=== PATIENT | male | born 1960 | race Caucasian/White ===

== ENCOUNTER 2023-09-02 14:44 | Emergency (ER) | payer MEDICARE, MEDICAID, SELFPAY ==
[2023-09-02 14:45] VITALS: BP 125/83; PULSE 95; RESP 16; TEMP 36.4; O2SAT 94; BMI 25.4
[2023-09-02 14:47] VITALS: BP 125/83; PULSE 93; RESP 16; TEMP 36.4; O2SAT 94
--- NOTE | 2023-09-02 14:58 | ED.RN ---
LONG TERM STATES PT WANTS TO SEE A NEW UROLOGIST BECAUSE HE HAS HAD SO MANY PROBLEMS WITH HIS SUPRAPUBIC.
--- NOTE | 2023-09-02 15:29 | CT_ITS ---
STUDY: CT ABDOMEN AND PELVIS WITH CONTRAST REASON FOR EXAM: Male, 63 years old. lower abd pain RADIATION DOSAGE (If Supplied By Facility): CTDIvol = ( 17.78 ) mGy, DLP = ( 645.71 ) mGycm TECHNIQUE: Transaxial images were obtained from the dome of the diaphragm to the symphysis pubis without oral contrast. IV 100mL Isovue-370 was administered. Sagittal and coronal images were reconstructed. Individualized dose optimization techniques were used for this CT. COMPARISON: None. FINDINGS: The visualized lung bases are unremarkable. The visualized portions of the heart are within normal limits. Normal liver. There is a solitary gallstone. Normal spleen. Normal pancreas. Normal bilateral adrenal glands. Right kidney is relatively small consistent with moderate chronic atrophy, otherwise negative right kidney. Normal left kidney. Evaluation of the GI tract is limited by absence of oral contrast. Cannot exclude stomach wall thickening. No dilated loops of bowel or evidence for obstruction. Cannot exclude segmental thickening of the odom of the small or large bowel. Cannot exclude enteritis or colitis. Postsurgical changes and bowel anastomosis across the mid transverse colon Marked diffuse fecal retention. Left lower quadrant ostomy, grossly negative. Appendix within normal limits. There is diffuse atherosclerotic calcification of the abdominal aorta, without a demonstrated aneurysm. Normal inferior vena cava. Normal retroperitoneum. Suprapubic catheter appears to be positioned in the far anterior lumen of the bladder. Bladder is nondistended. Several bladder stones are seen along the posterior wall of the bladder. Normal abdominal wall. Normal osseous structures. CT/Abdomen/Pelvis W IV Cont ONLY IMPRESSION: Cholelithiasis. Suprapubic catheter is in grossly satisfactory position within the lumen of the bladder. Bladder stones are seen. Marked diffuse fecal retention. Electronically Signed: David Mendoza MD at 17:14 EST ,
--- NOTE | 2023-09-02 15:30 | EX.ED.DYSGE1 ---
HPI History of Present Illness Chief Complaint: Complaint Detail of Chief Complaint: Concern for UTI Informant: patient Narrative Narrative: Patient presents via EMS from a nursing home secondary to concern for UTI. He has a history of colorectal cancer for which he underwent an ostomy 14 years ago. Patient states that he had a Perez catheter for years and had frequent UTIs. About 6 months ago he had a suprapubic catheter placed by Dr. Quiroga, his urologist in [place]. He states he continues to have frequent infections and is concerned that he has a infection currently. He reports some pain around the suprapubic site. He states he continues to have urine leak around the surgical site as well as from his penis. He denies having fever or chills. [facility] Medical History (Updated 09/02/23 @ 17:[address] Victorina Razo MD) Bipolar disorder Colorectal cancer Colostomy in place Suprapubic catheter Home Medications sulfamethoxazole 800 mg-trimethoprim 160 mg tablet (Bactrim DS) 1 tab PO BID #6 tabs 09/02/23 [Rx Last Taken Unknown] Allergy/AdvReac Type Severity Reaction Status Date / Time No Known Allergies Allergy Verified 09/02/23 14:48 Social History Smoking Status: Former smoker ROS ROS ED Constitutional Constitutional ED: Denies chills or fever(s) ENT ENT ED: Denies rhinorrhea or sore throat Cardiovascular Cardiovascular: Denies chest pain or palpitations Respiratory/Chest Respiratory/Chest: Denies cough or dyspnea Gastrointestinal Gastrointestinal: Reports abdominal pain; Denies diarrhea, nausea or vomiting Musculoskeletal Musculoskeletal: Denies back pain or extremity pain Integumentary Denies Abrasions or rash Neurologic Neurologic: Denies headache(s) or weakness Psychiatric Psychiatric: Denies anxiety or depression Allergic/Immunologic Allergic/Immunologic ED: Denies lip swelling or urticaria EXAM Physical Exam Const Vital Signs: 09/02/23 14:45 09/02/23 14:47 09/02/23 16:36 Temperature 97.5 F L 97.5 F L 97.4 F L Temperature Source Oral Temporal Oral Pulse Rate 95 93 86 Respiratory Rate 16 16 16 Blood Pressure 125/83 H 125/83 H 118/84 H Blood Pressure Mean 97 97 95 Pulse Ox 94 94 94 Oxygen Delivery Method Room Air Room Air Room Air Positive well nourished and well developed General Appearance ED: well developed HEENT Reports moist mucous membranes Eyes EOMs intact bilaterally Chest Wall inspection of chest normal and palpation of chest normal Resp normal respiratory effort and clear to auscultation bilaterally Cardio regular rate and regular rhythm GI GI Narrative: Abdomen soft. Ostomy site clean with no sign of infection. Suprapubic catheter in place with only minimal erythema at the insertion site. Slight tenderness to palpation around the area. Extremity normal to inspection Neuro Neuro Narrative: Patient alert answers questions appropriately. Psych mental status grossly normal MDM MDM MDM Narrative Medical decision making narrative: IV line established. Labwork obtained to evaluate for leukocytosis, anemia, and electrolyte derangement. Urinalysis obtained to evaluate for infection/hematuria. Urine culture sent given patient's history of frequent UTIs. CT scan abdomen pelvis with IV contrast will be obtained to evaluate the suprapubic site and evaluate for any evidence of infection. History & Record Review Discussion w/independent historian: Patient Lab Data Attestation: I reviewed the patient's lab results. Labs: Laboratory Results - last 24 hr 09/02/23 09/02/23 16:10 16:17 WBC 5.9 RBC 4.59 L Hgb 14.1 Hct 42.1 MCV 91.7 MCH 30.7 MCHC 33.5 RDW Std Deviation 42.0 RDW Coeff of [place] 12.7 Plt Count 171 MPV 9.9 Immature Gran % (Auto) 0.200 Neut % (Auto) 67.1 Lymph % (Auto) 23.4 Nolan % (Auto) 7.9 Eos % (Auto) 0.2 Baso % (Auto) 1.2 H Absolute Neuts (auto) 3.9 Absolute Lymphs (auto) 1.37 Nucleated RBC % 0 Sodium 141 Potassium 4.9 Chloride 110 H Carbon Dioxide 28.0 Anion Gap 3 L BUN 25 H Creatinine 1.34 H Estim Creat Clear Calc 56.75 Est GFR (MDRD) Af Amer 69 Est GFR (MDRD) Non-Af 57 L BUN/Creatinine Ratio 18.7 Glucose 95 Calcium 9.8 Urine Color Yellow Urine Clarity Sl. Cloudy Urine pH 6.5 Ur Specific [place] 1.015 Urine Protein Negative Urine Glucose (UA) Normal Urine Ketones 5 H Urine Occult Blood 10 H Urine Nitrite Positive H Urine Bilirubin Negative Urine Urobilinogen Normal Ur Leukocyte Esterase 500 H Urine RBC 0 SEEN Urine WBC 10-25 SEEN Ur Squamous Epith Cells 0 SEEN Urine Bacteria 1+ Urine Mucus 0 SEEN Radiography Diagnostic Testing: Clinical Impression(s) from Imaging Studies Abdomen/Pelvis CT 09/02/23 15:29 IMPRESSION: Cholelithiasis. Suprapubic catheter is in grossly satisfactory position within the lumen of the bladder. Bladder stones are seen. Marked diffuse fecal retention. Electronically Signed: David Mendoza MD at 17:14 EST , Treatment and Re-Evaluation :: CBC was normal white count 5.9 with no left shift. Hemoglobin normal at 14.1. Creatinine is 1.34 and BUN is 25. I do not have any prior values to compare to. Remainder of BMP is unremarkable. Urinalysis is positive for nitrites with 10-25 white cells and 1+ bacteria. CT scan of the abdomen and pelvis reveals cholelithiasis. Patient has no tenderness in the upper abdomen. Suprapubic catheter is in grossly satisfactory position with the lumen in the bladder. Bladder stones are seen. Test results discussed with the patient. I did try to look up prior urine cultures and Clinisync. It appears the last 2 or 3 cultures have grown multiple organisms, concern for contamination. I will treat him with a 3-day course of Bactrim, first dose given here. Nursing staff spoke with the patient's nursing home and they would like him to get established with a urologist in [place] as he is now seeing a primary care physician here. I will give them Dr. Irby's phone number for follow-up. Discharge Plan Triage Chief Complaint: Complaint ED Provider: Victorina Razo Dx/Rx/DC Orders Clinical Impression: UTI (urinary tract infection) Instructions: ED Bladder Infection, Male (Adult) Prescriptions: New sulfamethoxazole-trimethoprim [Bactrim DS] 800-160 mg tablet 1 tab PO BID Qty: 6 0RF Primary Care Provider: Care Physician,No Primary Referrals: Brian Irby MD [Med Staff - Active Staff] - 1-2 Weeks Care Physician,No Primary [Primary Care Provider] - Disposition Disposition: Home, Self Care
[2023-09-02] MEDS: 0.9% Normal Saline (1000mL) 1,000 ML 150 ML IV (16:14)
[2023-09-02 16:17] LABS: Absolute Lymphocyte Count 1.37 X10^3/uL (0.83-4.51); Absolute Neutrophil Count 3.9 X10^3/uL (2.0-7.7); Basophil# 0.07 X10^3/uL; Basophil% 1.2 % (0-1); Eosinophil# 0.01 X10^3/uL; Eosinophils% 0.2 % (0-5); Hematocrit 42.1 % (40-54); Hemoglobin 14.1 g/dL (13.0-16.5); Lymphocyte # 1.37 X10^3/ul (0.83-4.51); Lymphocyte % 23.4 % (19-41); Mean Corp Hgb Conc 33.5 g/dL (32-36); Mean Corpuscular Hgb 30.7 pg (27.0-32.0); Mean Corpuscular Volume 91.7 fL (80-94); Mean Platelet Vol. 9.9 fl (6.2-12.0); Monocyte# 0.46 X10^3/uL; Monocyte% 7.9 % (0-10); NRBC Flagged by Analyzer 0 % (0-5); Neutrophil # 3.93 X10^3/uL (2.7-7.7); Neutrophil % 67.1 % (47-70); Platelet Count 171 K/mm3 (150-450); RBC Distribution Width CV 12.7 % (11.6-14.6); Red Blood Count 4.59 M/mm3 (4.6-6.2); White Blood Count 5.9 K/mm3 (4.4-11.0)
[2023-09-02 16:36] VITALS: BP 118/84; PULSE 86; RESP 16; TEMP 36.3; O2SAT 94
[2023-09-02 16:37] LABS: Anion Gap 3 (5-15); BUN 25 mg/dL (7-18); BUN/Creat Ratio 18.7 RATIO (10-20); Calcium,Total 9.8 mg/dL (8.5-10.1); Chloride 110 mmol/L (98-107); Creatinine, Serum 1.34 mg/dL (0.70-1.30); EST Glomerular Filtration Rate 57 mL/min (>60); Est Glom Filt Rate - Afr Amer 69 mL/min (>60); Estimated Creatinine Clearance 56.75 ml/min; Glucose 95 mg/dL (74-106); Potassium 4.9 mmol/L (3.5-5.1); Sodium Level 141 mmol/L (136-145)
[2023-09-02 17:02] LABS: Color, Urine Yellow (Yellow); Glucose, Dipstick Normal (Normal); Ketone-Dipstick 5 mg/dl (Negative); Leukocyte Esterase-Dipstick 500 /ul (Negative); Mucous, Urine 0 SEEN /hpf (<or=2+); Nitrite-Dipstick Positive (Negative); Occult Blood-Urine 10 /ul (Negative); Protein-Dipstick Negative (Negative); Red Blood Cells-Urine 0 SEEN /hpf (0-5); Specific Gravity, Urine 1.015 (1.002-1.030); Squamous Epithelial Cells - UA 0 SEEN /hpf (0-5); Urine Bilirubin Dipstick Negative (Negative); Urine Clarity Sl. Cloudy (Clear); Urine Urobilinogen Normal (Normal); Urine pH 6.5 (5.0 - 8.0)
[2023-09-02 17:06] LABS: Bacteria 1+ /hpf (None Seen); White Blood Cells 10-25 SEEN /hpf (0-5)
[2023-09-02 17:31] VITALS: BP 128/57; PULSE 79; RESP 17; O2SAT 95
[2023-09-02] MEDS: Smz/Tmp Ds Tablet 1 TABLET PO (17:41)
--- NOTE | 2023-09-02 18:02 | ED.RN ---
CALLED MULTIPLE TIME AND LEFT MESSAGES FOR THE FACILITY AND THE AFTER HOURS NUMBER TO RETURN A CALL TO GET REPORT AND ALSO DISCUSS HOW THE PT IS GOING TO GO HOME. PT STATES HE USUALLY GOES TO [place] AND THEY SEND HIM HOME BY S[facility]. EXPLAINED TO PT HE DOESN'T MEET MEDICAL NECESSITY TO WARRANT A SQUAD. CALLED AGAIN AND TALKED TO THE COMPUTER [employer]WORKING [employer]CTOR [employer](BONNIE) OF THE FACILITY. SHE ALSO STATED A SQUAD IS THE NORMAL. EXPLAINED THAT HE DOES NOT MEET CRITERIA FOR EMS. BONNIE THEN SAID THAT THEY CAN BILL THE SQUAD BILL TO HIS GUARDIANS OFFICE TO BE PAID. TOLD HER THIS NURSE WAS UNSURE IF THAT WAS ACCEPTABLE WITH THE AMBULANCE COMPANY BUT WE WOULD TRY.
== END 2023-09-02 20:18 | disposition home or self-care (01) ==
PROVIDERS: Emergency Provider Emergency Medicine; Visit Provider Emergency Medicine
DX: N39.0 Urinary tract infection, site not specified (principal); Z93.3 Colostomy status; Z87.891 Personal history of nicotine dependence; Z85.048 Personal history of other malignant neoplasm of rectum, rectosigmoid junction, and anus
CPT/HCPCS: 74177; 80048; 81001; 85025; 87077; 87086; 87088; 87186; 96360; 99283; J7030; A4216

== ENCOUNTER → 2024-09-19 | Outpatient (CLI) | payer MEDICARE, MEDICAID, SELFPAY ==
[2024-09-19 13:05] LABS: Absolute Lymphocyte Count 1.21 X10^3/uL (0.83-4.51); Absolute Neutrophil Count 4.2 X10^3/uL (2.0-7.7); Basophil# 0.05 X10^3/uL; Basophil% 0.8 % (0-1); Eosinophil# 0.15 X10^3/uL; Eosinophils% 2.4 % (0-5); Hematocrit 43.8 % (40-54); Hemoglobin 14.6 g/dL (13.0-16.5); Lymphocyte # 1.21 X10^3/ul (0.83-4.51); Lymphocyte % 19.7 % (19-41); Mean Corp Hgb Conc 33.3 g/dL (32-36); Mean Corpuscular Hgb 32.4 pg (27.0-32.0); Mean Corpuscular Volume 97.1 fL (80-94); Mean Platelet Vol. 9.8 fl (6.2-12.0); Monocyte# 0.52 X10^3/uL; Monocyte% 8.5 % (0-10); NRBC Flagged by Analyzer 0 % (0-5); Neutrophil # 4.18 X10^3/uL (2.7-7.7); Neutrophil % 68.1 % (47-70); Platelet Count 221 K/mm3 (150-450); RBC Distribution Width CV 12.7 % (11.6-14.6); RBC Distribution Width SD 45.5 fl (35.1-43.9); Red Blood Count 4.51 M/mm3 (4.6-6.2); White Blood Count 6.1 K/mm3 (4.4-11.0)
[2024-09-19 14:12] LABS: ALB/GLOB Ratio 1.3 RATIO (0.9-2.4); AST(SGOT) 40 U/L (<=37); Alanine Aminotransfer ALT/SGPT 29 U/L (<=46); Albumin, Serum 4.2 g/dL (3.4-4.8); Alkaline Phosphatase 84 U/L (40-129); Anion Gap 12 (5-15); BUN 15 mg/dL (4-19); BUN/Creat Ratio 10.1 RATIO (10-20); Calcium 10.6 mg/dL (7.6-11.0); Chloride 104 mmol/L (96-108); Cholesterol 137 mg/dL (<=200); Creatinine, Serum 1.5 mg/dL (0.8-1.3); EST Glomerular Filtration Rate 53 (>60); Globulin 3.2 g/dL (2.2-4.2); Glucose 93 mg/dL (70-99); High Density Lipoprotein 58 mg/dL; Low Density Lipoprotein Calc. 54 mg/dL; PSA,Total - Annual Screen 0.03 ng/mL (0.02-4.00); Potassium 4.4 mmol/L (3.3-5.1); Protein, Total 7.4 g/dL (5.9-8.4); Sodium Level 139 mmol/L (133-145); Total Bilirubin 0.27 mg/dL (0.00-1.30); Triglycerides 121 mg/dL; Very Low Density Lipoprotein 24 mg/dL (5-40); cholesterol:hdl ratio screen 2.35
== END | disposition home or self-care (01) ==
LOC: VSLAB 10:38
DX: Z12.5 Encounter for screening for malignant neoplasm of prostate (principal); R54 Age-related physical debility; Z13.6 Encounter for screening for cardiovascular disorders; Z85.048 Personal history of other malignant neoplasm of rectum, rectosigmoid junction, and anus; E78.5 Hyperlipidemia, unspecified
CPT/HCPCS: 36415; 80053; 80061; 84153; 84443; 85025; G0103